=== PATIENT | female | born 1990 | race Hispanic/Latino ===

== ENCOUNTER 2016-09-15 08:25 | Emergency (ER) | payer MEDICAID, OTHER ==
[~2016-09-15] VITALS: Ht 167.6 cm; Wt 65.5 kg
[2016-09-15 08:26] VITALS: BP 137/87; PULSE 72; RESP 16; O2SAT 100
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
[2016-09-15] MEDS ORDERED: OXYC1TAB24 PO (10:23)
[2016-09-15 10:56] VITALS: BP 135/77; PULSE 95; O2SAT 96
== END 2016-09-15 10:57 | disposition home or self-care (01) ==
LOC: SED 08:25
DX: S16.1XXA Strain of muscle, fascia and tendon at neck level, initial encounter (principal); V43.52XA Car driver injured in collision with other type car in traffic accident, initial encounter; Y93.9 Activity, unspecified; Y92.410 Unspecified street and highway as the place of occurrence of the external cause; Y99.9 Unspecified external cause status; Z88.0 Allergy status to penicillin